=== PATIENT | female | born 1970 ===

== ENCOUNTER 2020-06-29 04:26 | Observation (INO) | payer OTHER ==
[~2020-06-29] VITALS: Ht 154.9 cm; Wt 87.9 kg
[2020-06-29 05:05] LABS: BASO # 0.1 (0.0-0.2); BASO % 0.7 % (0.0-2.0); EOS # 0.2 (0.0-0.7); EOS % 2.4 % (0-4.0); GRAN # 5.7 (1.4-6.5); GRAN % 57.3 % (42.2-75.2); HEMATOCRIT 45.6 % (37.0-47.0); HEMOGLOBIN 15.2 g/dl (12.5-16.0); LYMPH # 3.4 (1.2-3.4); LYMPH % 33.8 % (20.0-51.0); MEAN CELL VOLUME 81 fl (80.0-100.0); MEAN CORPUSCULAR HEMOGLOBIN 27 pg (27.0-31.0); MEAN CORPUSCULAR HGB CONC 33 g/dl (33.0-37.0); MEAN PLATELET VOLUME 11.1 fl (7.4-10.4); MONO # 0.5 (0.1-0.6); MONO % 5.4 % (1.7-9.3); PLATELET COUNT 286 K/mm3 (130-400); RED BLOOD COUNT 5.63 M/mm3 (4.10-5.30); REDCELL DISTRIBUTION WIDTH-CV 13.9 % (11.5-14.5)
[2020-06-29 05:14] LABS: ALBUMIN 4.6 gm/dL (3.5-5.0); BILIRUBIN,TOTAL 0.4 mg/dL (0.0-1.0); CALCIUM 9.1 mg/dL (8.4-10.2); CREATININE, serum 0.45 (0.52-1.25); POTASSIUM 3.4 mmol/L (3.4-5.0); TOTAL PROTEIN 8.3 gm/dL (6.4-8.2)
[2020-06-29 05:27] LABS: TROPONIN-I 0.04 ng/mL (0.000-0.035)
[2020-06-29] MEDS ORDERED: PRINZIDE 25 MG-1 TAB PO (08:04)
[2020-06-29] MEDS ORDERED: CELEXA 20MG20 MG/TAB PO (08:04)
[2020-06-29] MEDS ORDERED: PROAIR HFA0.09 MG/AC IH (08:05)
--- NOTE | 2020-06-29 16:08 | NUR ---
Heparin drip changed from 10ml/hr to 12.5 ml/hr with hep xa 0.12.
--- NOTE | 2020-06-29 16:12 | NUR ---
Dr Tompkins mentioned she spoke with Dr Mann about cardiac intervention.
[2020-06-29] MEDS ORDERED: FLOVENT 220MCG7.9 GM IH (16:16)
[2020-06-29] MEDS ORDERED: ASPIRIN 32325 MG/TAB PO (16:17)
[2020-06-29 17:18] VITALS: BP 140/79; PULSE 77; TEMP 97.9
[2020-06-29 19:41] LABS: INR 1.1 (0.8-3.0); PROTHROMBIN TIME 12.2 SECONDS (9.7-12.8)
[2020-06-29 19:44] VITALS: BP 170/80; PULSE 79; TEMP 98.4
[2020-06-29 19:44] LABS: MAGNESIUM 1.7 mg/dL (1.6-2.3); PARTIAL THROMBOPLASTIN TIME 88.2 SECONDS (26.0-37.0)
[2020-06-29 19:56] LABS: TROPONIN-I 0.016 ng/mL (0.000-0.035)
--- NOTE | 2020-06-29 20:04 | NUR ---
PT IN BED WITH HOB AT 90 DEGREE ANGLE. A/O X4, WITH NO C/O PAIN OR DISCOMFORT. PT HAS NO NEEDS AT THIS TIME, CALL LIGHT WITHIN REACH.
--- NOTE | 2020-06-29 20:19 | NUR ---
Patient admitted from ER for chest pain. patient denies any chest pain at this time. Hepxa at 12.5ml. Patient resting in bed. No question or concern at this time
[2020-06-30 01:10] VITALS: BP 133/72; PULSE 70; TEMP 98.2
[2020-06-30 04:32] VITALS: BP 154/82; PULSE 73; TEMP 97.4
--- NOTE | 2020-06-30 06:55 | NUR ---
NO ISSUE OR CONCERNS THIS SHIFT. PT ADVISED THAT SHE SLEPT WELL AND HAS NO PAIN. CALL LIGHT WITHIN REACH.
--- NOTE | 2020-06-30 07:13 | NUR ---
RATE FOR HEPARIN WAS CHANGED AT ABOUT 0545 THIS AM, BUT MICHEL CHARGE NURSE FROM 12.5 TO 11.5. UPDATED IN MARS LATER AT 0710.
--- NOTE | 2020-06-30 08:00 | NUR ---
PATIENT IS A&O. PRIMARILY KHMER SPEAKING HOWEVER, SPEAKS [place]ER[place] WELL. VSS. DENIES CHEST PAIN OR SOA. HEPARIN GTT INFUSING INTO RIGHT AC IV PER PROTOCOL. PATIENT IS SR IN THE 70'S ON TELE. HEART SOUNDS REGULAR WITH S1S2. HEAD TO TOE ASSESSMENT WNL. SCD'S TO BLE. PATIENT INDEPENDENT IN ROOM. NO C/O N/V. AM MEDS GIVEN. CALL LIGHT IN REACH.
[2020-06-30] MEDS ORDERED: LOPRESSOR 225 MG/TAB PO (09:20)
[2020-06-30] MEDS ORDERED: LIPITOR 10MG10 MG PO (09:21)
--- NOTE | 2020-06-30 09:45 | NUR ---
HOSPITALIST ROUNDING, SEE DISCHARGE ORDERS.
--- NOTE | 2020-06-30 11:00 | NUR ---
PATIENT DISCHARGING HOME VIA AMBULATORY TO PERSONAL VEHICLE WHERE IS WAITING. GAVE DISCHARGE INSTRUCTIONS, E-SCRIPTS SENT, AND DISCUSSED F/U APTS. ANSWERED QUESTIONS/CONCERNS. PROVIDED PATIENT WITH CARDIOLOGY CARD. DC'D RIGHT AC IV, COVERED SITE WITH GAUZE & COBAN. PATIENT DRESSED AND PACKED. PATIENT DISCHARGED.
== END 2020-06-30 11:00 | disposition home or self-care (01) ==
LOC: COL.ER 04:26 → MEDICAL 07:27 → COL.ER 07:27 → MEDICAL 06-30 11:00
PROVIDERS: Emergency Medicine; ADMIT Hospitalist
DX: R07.9 Chest pain, unspecified (principal); E11.65 Type 2 diabetes mellitus with hyperglycemia; I10 Essential (primary) hypertension; E78.00 Pure hypercholesterolemia, unspecified; E66.09 Other obesity due to excess calories; J45.909 Unspecified asthma, uncomplicated
CPT/HCPCS: 99222-AI; 99239; G0378; G0379; J1644; J2270; J2550; J7030; Q9967

== ENCOUNTER 2022-01-10 16:27 | Emergency (ER) | payer SELFPAY ==
[~2022-01-10] VITALS: Ht 154.9 cm; Wt 84.1 kg
[~2022-01-10 16:27] MED LIST: ASPIRIN 32325 MG/TAB PO; CELEXA 20MG20 MG/TAB PO; FLOVENT 220MCG7.9 GM IH; LIPITOR 10MG10 MG PO; LOPRESSOR 225 MG/TAB PO; PRINZIDE 25 MG-1 TAB PO; PROAIR HFA0.09 MG/AC IH
[2022-01-10 18:30] VITALS: BP 153/103; PULSE 79; TEMP 99.2
== END 2022-01-10 18:37 | disposition home or self-care (01) ==
LOC: COL.ER 16:27
DX: U07.1 COVID-19 (principal); Z28.311 Partially vaccinated for COVID-19
CPT/HCPCS: J1885; J2405; J7030